=== PATIENT | male | born 1985 | race Caucasian/White ===

== ENCOUNTER 2017-01-20 19:08 | Emergency (ER) | payer OTHER ==
[2017-01-20 19:14] VITALS: BP 127/65; PULSE 105; TEMP 98.4; BMI 24.5
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
[2017-01-20] MEDS ORDERED: KETOROLAC TROMETHAMINE 60 MG/2 ML VIAL IM ONE (19:50)
[2017-01-20] MEDS ORDERED: KETOROLAC TROMETHAMINE 60 MG/2 ML VIAL ONE (19:51)
== END 2017-01-20 20:08 | disposition home or self-care (01) ==
LOC: JERFT 19:08
PROC: 3E0233Z Introduction of Anti-inflammatory into Muscle, Percutaneous Approach (ICD-10-PCS; principal; 2017-01-20)
DX: R69 Illness, unspecified (principal); V43.52XA Car driver injured in collision with other type car in traffic accident, initial encounter; Y93.89 Activity, other specified; Y92.410 Unspecified street and highway as the place of occurrence of the external cause
CPT/HCPCS: 99281-25

== ENCOUNTER 2017-03-26 04:58 | Day surgery (SDC) | payer OTHER ==
[2017-03-19 16:43] VITALS: BMI 24.0
[2017-03-26] MEDS ORDERED: BUPIVACAINE HCL/PF 0.5% (5MG/ML) 10 ML VIAL ONE (07:09)
[2017-03-26] MEDS ORDERED: LIDOCAINE 1%/EPI 1:100000 (20 ML MULTI DOSE VIAL) ONE (07:09)
[2017-03-26] MEDS ORDERED: DESFLURANE GAS 240 ML BOTTLE IH ONE (07:09)
[2017-03-26] MEDS ORDERED: ePHEDrine SULFATE 50 MG/1 ML AMPULE ONE (07:16)
[2017-03-26] MEDS ORDERED: SUCCINYLCHOLINE CHLORIDE 200 MG/10 ML VIAL ONE (07:17)
[2017-03-26] MEDS ORDERED: PROPOFOL 20 ML ONE ×5 (07:17)
[2017-03-26] MEDS ORDERED: MIDAZOLAM HCL 2 MG/2 ML SINGLE DOSE VIAL ONE (07:18)
[2017-03-26] MEDS ORDERED: ceFAZolin SODIUM 1 GM VIAL ONE (07:23)
[2017-03-26] MEDS ORDERED: DEXAMETHASONE SOD PHOSPHATE 4 MG/1 ML VIAL ONE (07:23)
[2017-03-26] MEDS ORDERED: KETOROLAC TROMETHAMINE 30 MG/1 ML VIAL ONE (07:23)
--- NOTE | 2017-03-26 07:59 | HP ---
[facility] - Chief Complaint Chief Complaint: left knee pain - Past Medical History Allergies/Adverse Reactions: Allergies Allergy/AdvReac Type Severity Reaction Status Date / Time No Known Allergies Allergy Verified 03/26/17 06:44 - Current Medications Current Medications: Home Medications Medication Instructions Recorded Ibuprofen [Advil -] 200 mg PO PRN PRN 03/19/17 Satellite Physical Exam - Physical Examination Vital Signs: Vital Signs Period Temp Pulse Resp BP Sys/Cuellar Pulse Ox Last 24 Hr 98.0 F 75 20 121/70 100 Extremities: Other (+ joint line tenderness) [facility] Impression/Plan - Impression/Plan Impression: internal derangement left knee Operative Procedure: arthroscopy left knee Date to be Performed: 03/26/17
[2017-03-26] MEDS ORDERED: LIDOCAINE 1%/EPI 1:100000 (50 ML MULTI DOSE VIAL) INF ONE (08:14)
[2017-03-26] MEDS ORDERED: BUPIVACAINE HCL/PF (5 MG/ML) 30 ML VIAL IJ ONE (08:15)
[2017-03-26] MEDS ORDERED: ONDANSETRON 4 MG/2 ML VIAL IVPUSH PRN (08:39)
[2017-03-26] MEDS ORDERED: oxyCODONE HCL 5 MG TABLET PO PRN (08:39)
[2017-03-26] MEDS ORDERED: LACTATED RINGERS SOLUTION 1,000 ML IV SCH (08:45)
--- NOTE | 2017-03-26 09:43 | OP ---
Operative Note - Note: Operative Date: 03/26/17 Pre-Operative Diagnosis: internal derangement left knee Operation: left knee arthroscopy with partial MM Post-Operative Diagnosis: Same as Pre-op Anesthesia: General Estimated Blood Loss (mls): 0 Operative Report Dictated: Yes
--- NOTE | 2017-03-26 09:58 | OP ---
DATE OF OPERATION: 03/26/2017 PREOPERATIVE DIAGNOSIS: Internal derangement, left knee. POSTOPERATIVE DIAGNOSIS: Internal derangement, left knee. OPERATION: Arthroscopy, left knee, with partial medial meniscectomy. SURGICAL ATTENDING: Bebeto Coronado M.D. ANESTHESIA: General with LMA. CLOSURE: 4-0 nylon. COMPLICATIONS: None. CONDITION: To recovery room in stable condition. DESCRIPTION OF OPERATIVE PROCEDURE: Patient was taken to the operating room on March 26, 2017. General anesthesia with LMA was administered by the anesthesiologist. Left lower extremity was prepped and draped in usual sterile fashion. The medial and lateral infrapatellar portal sites were infiltrated with 1% Xylocaine with epinephrine. Both portals were both made with a 15 blade blunt trocar. The scope was placed in the lateral infrapatellar portal and up into the suprapatellar pouch. The left knee was then inflated with a cocktail of 10 mL of 1% Xylocaine and 10 cc of 0.5% Marcaine and 20 mL of arthroscopic saline. After anesthetic was allowed to percolate through the knee, the procedure was continued. The scope was placed in the inferolateral portal up into the suprapatellar pouch. Pouch was visualized to be clean. The medial and lateral gutters were visualized to be clean. The undersurface of the patella and trochlea were visualized to be intact. With valgus stress on the knee, the medial compartment was entered. The medial meniscus was found to have a small flap tear anteriorly. Posterior was completely intact to probing and direct visualization. The femoral tunnel was run and found to be intact as was the medial tibial plateau at 90 degrees. The ACL was visualized, probed and found to be intact. In the [id number] position, the lateral compartment was entered. Lateral meniscus was visualized, probed and found to be intact. The lateral femoral condyle was run and found to be intact as was the lateral tibial plateau. The knee was irrigated with copious amounts of irrigation. The portals were closed using 4-0 nylon. Prior to closure, 20 mL of 0.5% Marcaine was infused into the knee for postoperative analgesia. Sterile pressure dressing was placed over the knee. Patient was awakened from anesthesia and transferred to recovery room in stable condition. No complications. Estimated blood loss was negligible. BEBETO CORONADO M.D. MATTIE/[id number]
[2017-03-26 10:07] VITALS: TEMP 98
[2017-03-26 20:03] VITALS: BP 111/67; PULSE 78
--- NOTE | 2017-03-29 16:34 | PATH ---
Surgical Pathology Report Patient Name: BRITNEY GOODMAN [facility]. Rec. #: [id number] /Age/Gender: 1985 (Age: 31) / M Account: [id number] Location: [facility] SURGICAL Taken: 03/26/2017 Received: 03/26/2017 Reported: 03/29/2017 Physicians: Bebeto Coronado M.D. Specimen(s) Received SHAVINGS LEFT KNEE Clinical History Tear left knee, internal derangement Final Diagnosis SHAVINGS, LEFT KNEE, ARTHROSCOPY AND PARTIAL MENISCECTOMY: BENIGN FIBROADIPOSE TISSUE AND SYNOVIUM. Electronically Signed Bianca Hannon M.D. Gross Description Received in formalin, labeled "shavings left knee," is a 4.2 x 3.3 x 0.4 cm. aggregate of galvan-yellow soft tissue fragments. A inside sales account representative portion is submitted in one cassette. 03/26/201703/26/2017
== END 2017-03-26 14:00 | disposition home or self-care (01) ==
LOC: JASU-SURG 04:58
PROVIDERS: ATTEND Orthopaedic Surgery
PROC: 0SBD4ZZ Excision of Left Knee Joint, Percutaneous Endoscopic Approach (ICD-10-PCS; principal; 2017-03-26 08:00)
DX: S83.242A Other tear of medial meniscus, current injury, left knee, initial encounter (principal); X58.XXXA Exposure to other specified factors, initial encounter; Y93.9 Activity, unspecified; Y92.89 Other specified places as the place of occurrence of the external cause; Y99.9 Unspecified external cause status
CPT/HCPCS: 88304-TC; 94760